=== PATIENT | male | born 1935 | race African-American/Black ===

== ENCOUNTER 2017-03-18 22:50 | Emergency (ER) | payer MEDICARE, OTHER ==
[~2017-03-18 22:50] MED LIST: ACET160S FT; AMLO5TAB4 PO; ASPI325T8 PO; CARV12.5 PO; CLON0.1T PO; DONE5TAB56 PO; INSU100I17 SQ; INSU100V13 SQ; INSU100V31 SQ; IPRA3AMP IH; LANS30CA66 PO; NITR0.4T SL; NITR0.4T22 SL; SIMV20TA3 PO; duoneb
--- NOTE | 2017-03-19 00:03 | PHYS DOC ---
Past Medical History Past Medical History: Anemia, Asthma, CHF, Constipation, COPD, CVA, Dementia, Depression, Diabetes-Type II, GERD, High Cholesterol, Hypertension, Seizure, Other Additional Past Medical Histor: Peripheral vascular disease, DYSPHAGIA, Insomnia, Edema, Hemiplegia Past Surgical History: Other Additional Past Surgical Histo: G-tube, L AKA ,noted surgical scar to R)lower leg Alcohol Use: None Drug Use: None Adult General Chief Complaint Chief Complaint: GTUBE REPLACEMENT/MALFUNCTION HPI HPI Patient is a 81 year old gentleman who [facility] from the [facility] secondary to malfunctioning G-tube. Per the nursing report the G-tube is leaking went to feeds are being injected. Patient is unable to give any further history. History and physical exam is limited unobtainable secondary to the patient's inability to communicate and follow instructions. Review of systems Unobtainable secondary to the patient's inability to answer/dementia Physical exam Constitutional:, non-toxic appearance. HENT: Normocephalic, atraumatic, bilateral external ears normal, oropharynx moist, no oral exudates, nose normal. Eyes: conjunctiva normal, no discharge. Neck: supple, no stridor. Cardiovascular:Heart rate regular rhythm, Lungs & Thorax: Bilateral breath sounds clear to auscultation Abdomen: Bowel sounds normal, soft, no tenderness, no masses, no pulsatile masses. G-tube intact. Skin: Warm, dry, Back: No tenderness, Extremities: No tenderness, no cyanosis, Neurologic: Responsive physical stimuli Unable to assess full physical exam secondary to the patient's dementia. Assessment and plan This is a 81-year-old gentleman who presents here today for G-tube malfunction. A 20 Indonesian G-tube was reinserted into the patient's tract without difficulty. G -tube site was obtained which revealed adequate placement of the G-tube. Patient be [facility] back to the [facility] for continued to feedings. Procedure: 22 Indonesian G-tube reinserted into G-tube tract without any difficulty. Review of Systems Review of Systems Allergies Allergies Allergies Coded Allergies Type Severity Reaction Last Updated Verified iodine Allergy Severe 11/01/14 Yes LETITIA Inhibitors Allergy Intermediate 11/01/14 Yes mupirocin Allergy Intermediate 11/01/14 Yes I S O L A T I O N *CONTACT* Allergy Unknown 11/01/14 Yes Current Patient Data Vital Signs Vital Signs Date Time Temp Pulse Resp B/P (MAP) Pulse Ox O2 Delivery O2 Flow Rate FiO2 03/18/17 22:59 97.8 85 16 166/73 (104) 92 Nasal Cannula 3.0 97.8 EKG EKG [] Radiology/Procedures Radiology/Procedures [] Course & Med Decision Making Course & Med Decision Making Pertinent Labs and Imaging studies reviewed. (See chart for details) [] Dragon Disclaimer Dragon Disclaimer This electronic medical record was generated, in whole or in part, using a voice recognition dictation system. Departure Departure Impression: Primary Impression: Encounter for gastrojejunal (GJ) tube placement Disposition: HOME, SELF-CARE Condition: IMPROVED Referrals: AMARIS MA MD (PCP) Patient Instructions: Gastrostomy Tube, Adult MANDA ALICEA MD Mar 19, 2017 00:03
[2017-03-19 00:41] VITALS: BP 175/79
[2017-03-19] MEDS ORDERED: CONTRAST GIVEN MC PRN (01:00)
[2017-03-19] MEDS ORDERED: IOHEXOL 300 MG/ML 75 ML VIAL PO ONE (01:30)
--- NOTE | 2017-03-19 08:05 | RAD ---
Supine abdomen. History: G-tube check Supine view was taken of the abdomen. Initial images showed a gastrostomy tube in place. There is mild distention of the colon without bowel obstruction. 2 additional films were taken following injection of Gastrografin. Contrast is in the stomach and in the small bowel. There is no free extravasation in the abdomen noted. There may be some contrast near the balloon or along the tract. Impression: 1. Gastrografin mainly in the stomach and bowel. 2. No free extravasation noted in the abdomen.
== END 2017-03-19 01:26 | disposition home or self-care (01) ==
LOC: ER 22:50
DX: Z43.1 Encounter for attention to gastrostomy (principal); J44.9 Chronic obstructive pulmonary disease, unspecified; E11.9 Type 2 diabetes mellitus without complications; K21.9 Gastro-esophageal reflux disease without esophagitis; E78.5 Hyperlipidemia, unspecified; I11.0 Hypertensive heart disease with heart failure; I50.9 Heart failure, unspecified; G81.90 Hemiplegia, unspecified affecting unspecified side; Z88.8 Allergy status to other drugs, medicaments and biological substances
CPT/HCPCS: 43760; 74000; 99284; Q9967

== ENCOUNTER 2017-03-27 13:43 | Inpatient (IN) | payer MEDICARE, OTHER ==
[~2017-03-27] VITALS: Ht 188 cm; Wt 94.6 kg
[~2017-03-27 13:43] MED LIST changes: +AMLO5TAB4 GT; -AMLO5TAB4 PO; +CARV12.5 GT; -CARV12.5 PO
--- NOTE | 2017-03-27 14:00 | PHYS DOC ---
Past Medical History Past Medical History: Anemia, Asthma, CHF, Constipation, COPD, CVA, Dementia, Depression, Diabetes-Type II, GERD, High Cholesterol, Hypertension, Seizure, Other Additional Past Medical Histor: Peripheral vascular disease, DYSPHAGIA, Insomnia, Edema, Hemiplegia Past Surgical History: Other Additional Past Surgical Histo: G-tube, L AKA ,noted surgical scar to R)lower leg Alcohol Use: None Drug Use: None Adult General Chief Complaint Chief Complaint: GTUBE REPLACEMENT/MALFUNCTION HPI HPI Patient is a 81 year old male presenting to the emergency department for a nonfunctioning GJ tube. He was seen here approximately 10 days ago for a leaking J-tube however it was functioning and was sent home but today starting this morning the GJ tube will not flush. Review of Systems Review of Systems Constitutional: Denies fever or chills [] Eyes: Denies change in visual acuity, redness, or eye pain [] HENT: Denies nasal congestion or sore throat [] Respiratory: Denies cough or shortness of breath [] Cardiovascular: No additional information not addressed in HPI [] GI: Denies abdominal pain, nausea, vomiting, bloody stools or diarrhea [] : Denies dysuria or hematuria [] Musculoskeletal: Denies back pain or joint pain [] Integument: Denies rash or skin lesions [] Neurologic: Denies headache, focal weakness or sensory changes [] Current Medications Current Medications Current Medications Medications (Trade) Dose Ordered Sig/Pasquale Start Time Stop Time Status Last Admin Dose Admin Ondansetron HCl (Zofran) 4 mg PRN Q8HRS PRN 03/27/17 14:30 03/28/17 14:29 Allergies Allergies Allergies Coded Allergies Type Severity Reaction Last Updated Verified iodine Allergy Severe 11/01/14 Yes LETITIA Inhibitors Allergy Intermediate 11/01/14 Yes mupirocin Allergy Intermediate 11/01/14 Yes I S O L A T I O N *CONTACT* Allergy Unknown 11/01/14 Yes Physical Exam Physical Exam Constitutional: Well developed, well nourished, no acute distress, non-toxic appearance. [] HENT: Normocephalic, atraumatic, bilateral external ears normal, oropharynx moist, no oral exudates, nose normal. [] Eyes: PERRLA, EOMI, conjunctiva normal, no discharge. [] Neck: Normal range of motion, no tenderness, supple, no stridor. [] Cardiovascular:Heart rate regular rhythm, no murmur [] Lungs & Thorax: Bilateral breath sounds clear to auscultation [] Abdomen: Bowel sounds normal, soft, no tenderness. GJ tube in place but will not flush. Skin: Warm, dry, no erythema, no rash. [] Back: No tenderness, no CVA tenderness. [] Extremities: No tenderness, no cyanosis, no clubbing, ROM intact, no edema. [] Neurologic: Alert and oriented X 3 Current Patient Data Vital Signs Vital Signs Date Time Temp Pulse Resp B/P (MAP) Pulse Ox O2 Delivery O2 Flow Rate FiO2 03/27/17 13:54 98.4 72 20 158/71 (100) 98 Room Air 98.4 EKG EKG [] Radiology/Procedures Radiology/Procedures [] Course & Med Decision Making Course & Med Decision Making Bia of Dr. Worley GI service came down and they agreed to change it out tomorrow. I spoke to Dr. Martins and he states that he does not go to the intermediate anymore and requested the hospitalist to admit. Dragon Disclaimer Dragon Disclaimer This electronic medical record was generated, in whole or in part, using a voice recognition dictation system. Departure Departure Impression: Primary Impression: Malfunction of gastrostomy tube Disposition: ADMITTED INPATIENT Admitting Physician: Angie Lopes Condition: STABLE Referrals: AMARIS MARTINS MD (PCP) KARYN FIORE DO Mar 27, 2017 14:00
[2017-03-27] MEDS ORDERED: ONDANSETRON PF 4 MG/2 ML VIAL. IV PRN (14:30)
[2017-03-27 14:45] LABS: BASO % 0 % (0-3); EOS % 4 % (0-3); HEMATOCRIT 44.9 % (39.0-53.0); HEMOGLOBIN 15.5 g/dL (13.0-17.5); LYMPH # 1.5 x10^3/uL (1.0-4.8); LYMPH % 28 % (24-48); MEAN CORPUSCULAR HEMOGLOBIN 30 pg (25-35); MEAN CORPUSCULAR HGB CONC 35 g/dL (31-37); MEAN CORPUSCULAR VOLUME 87 fL (79-100); MONO % 18 % (0-9); NEUT % 50 % (31-73); PLATELET COUNT 124 x10^3/uL (140-400); RED BLOOD COUNT 5.15 x10^6/uL (4.30-5.70); RED CELL DISTRIBUTION WIDTH 16.2 % (11.5-14.5); WHITE BLOOD COUNT 5.6 x10^3/uL (4.0-11.0)
[2017-03-27] MEDS ORDERED: PIOG30TA41 GT (14:50)
[2017-03-27] MEDS ORDERED: ATOR10TA60 GT (14:51)
--- NOTE | 2017-03-27 14:51 | PDOC2 ---
GI CONSULT Reason For Consult: G tube malfunction HPI: HPI: 81 y/o male from [facility] [place], brought to ER w/ reports of G tube malfunctioning since this morning. D/w Dr. Winchester, ER physician. H/o CVA and dysphagia. Per [facility] records, had EGD w/ replacement of PEG (#20 F pull type tube ) by Dr. Rehman in 10/2016. Since then apparently had a GJ tube placed elsewhere (?here in ER on 03/18 - KUB w/ GG below, ER notes: "22 Khmer G-tube reinserted into G-tube tract without any difficulty"). Regardless, it is now apparently malfunctioning, unable to use for feeds at living facility and unable to flush in ER. Home meds include omeprazole and ASA. PMH: PMH: from chart - CAD, CVA, COPD, DM, HTN, HLD, PAD, dysphagia, PEG tube placement, left AKA, right toe amputations FH: Family History: No pertinent hx Social History: Smoke: No ALCOHOL: none Drugs: None ROS: Difficult to obtain. Vitals: Vitals: Vital Signs Date Time Temp Pulse Resp B/P (MAP) Pulse Ox O2 Delivery O2 Flow Rate FiO2 03/27/17 13:54 98.4 72 20 158/71 (100) 98 Room Air 98.4 Labs: Labs: Laboratory Tests Test 03/27/17 14:35 White Blood Count 5.6 x10^3/uL (4.0-11.0) Red Blood Count 5.15 x10^6/uL (4.30-5.70) Hemoglobin 15.5 g/dL (13.0-17.5) Hematocrit 44.9 % (39.0-53.0) Mean Corpuscular Volume 87 fL (79-100) Mean Corpuscular Hemoglobin 30 pg (25-35) Mean Corpuscular Hemoglobin Concent 35 g/dL (31-37) Red Cell Distribution Width 16.2 % (11.5-14.5) Platelet Count 124 x10^3/uL (140-400) Neutrophils (%) (Auto) 50 % (31-73) Lymphocytes (%) (Auto) 28 % (24-48) Monocytes (%) (Auto) 18 % (0-9) Eosinophils (%) (Auto) 4 % (0-3) Basophils (%) (Auto) 0 % (0-3) Neutrophils # (Auto) 2.8 x10^3uL (1.8-7.7) Lymphocytes # (Auto) 1.5 x10^3/uL (1.0-4.8) Monocytes # (Auto) 1.0 x10^3/uL (0.0-1.1) Eosinophils # (Auto) 0.2 x10^3/uL (0.0-0.7) Basophils # (Auto) 0.0 x10^3/uL (0.0-0.2) Allergies: Coded Allergies: iodine (Verified Allergy, Severe, 11/01/14) LETITIA Inhibitors (Verified Allergy, Intermediate, 11/01/14) mupirocin (Verified Allergy, Intermediate, 11/01/14) I S O L A T I O N *CONTACT* (Verified Allergy, Unknown, 11/01/14) mrsa + Medications: Please see EMR. Imaging: Imaging: KUB 03/18/17 Impression: 1. Gastrografin mainly in the stomach and bowel. 2. No free extravasation noted in the abdomen. PE: GEN: NAD HEENT: Atraumatic, PERRL LUNGS: decreased HEART: RRR ABD: BS+, non-tender, PEG site w/ minimal drainage (gauze/tape replaced), bumper loose, PEG tube w/ three ports EXTREMITY: left AKA, right toe amputations, right foot in cloth boot SKIN: No rashes, no jaundice NEURO/PSYCH: A & O 3, nods and shakes head, doesn't speak to me A/P: A/P: Feeding tube malfunction -h/o CVA, dysphagia, PEG placement ([facility] records show regular G tube placed w/ Dr. Rehman in 10/2016) -currently has GJ tube, non-functioning since this morning -- To be admitted. Plan for EGD w/ PEG replacement tomorrow afternoon w/ Dr. Worley. PANCHO LOU Mar 27, 2017 14:51
[2017-03-27] MEDS ORDERED: ALOE237J TP (14:53)
[2017-03-27 14:54] LABS: PROTHROMBIN TIME PATIENT 12.9 SEC (11.7-14.0)
[2017-03-27] MEDS ORDERED: GABA-586 GT (14:56)
[2017-03-27] MEDS ORDERED: HYDR25TA9 GT (14:56)
[2017-03-27] MEDS ORDERED: NITR1PAT5 TD (14:58)
[2017-03-27] MEDS ORDERED: OMEP20CA9 GT (14:58)
[2017-03-27] MEDS ORDERED: BUDE10.2 IH (14:59)
[2017-03-27] MEDS ORDERED: TRAZ50TA15 PO (14:59)
[2017-03-27] MEDS ORDERED: MONT10TA9 PO (14:59)
[2017-03-27 15:00] VITALS: BP 129/70
[2017-03-27 15:02] LABS: CALCIUM 9.9 mg/dL (8.5-10.1); CREATININE 1.1 mg/dL (0.7-1.3); GFR 77.7; POTASSIUM 3.7 mmol/L (3.5-5.1)
[2017-03-27 15:08] LABS: ALBUMIN 2.9 g/dL (3.4-5.0); ALBUMIN/GLOBULIN RATIO 0.6 (1.0-1.7); TOTAL BILIRUBIN 0.7 mg/dL (0.2-1.0); TOTAL PROTEIN 7.7 g/dL (6.4-8.2)
--- NOTE | 2017-03-27 18:26 | PDOC1 ---
History and Physical Date of Admission Date of Admission DATE: 03/27/17 TIME: 18:22 Source Source: Chart review, Patient History of Present Illness History of Present Illness 81 y/o male from [facility] [place], admit from ER for malfunction feeding tube. < 12 horus of malfunction tongith Pt some aphasic, can talk some, mostly nods H/o CVA and dysphagia. had EGD previously now has GJ tube placed elsewhere. cannot flush, not getting meals or meds Past Medical History Past Medical History CAD, CVA, COPD, DM, HTN, HLD, PAD, dysphagia, PEG tube placement, left AKA, right toe amputations Family History Family History: No Significant Social History Smoke: No ALCOHOL: none Drugs: None Current Problem List Problem List Problems Medical Problems: (1) Malfunction of gastrostomy tube Status: Acute Problems: Current Medications Current Medications Current Medications Ondansetron HCl (Zofran) 4 mg PRN Q8HRS PRN IV NAUSEA/VOMITING; Start 03/27/17 at 14:30; Stop 03/28/17 at 14:29 Cefazolin Sodium 1 gm/Sodium Chloride 50 ml @ 100 mls/hr 1X ONCE IV ; Start 03/28/17 at 15:00; Stop 03/28/17 at 15:29 Famotidine (Pepcid) 20 mg BID IVP ; Start 03/27/17 at 21:00 Active Scripts Active Reported Trazodone Hcl 50 Mg Tablet 1 Tab PO QHS Symbicort 160-4.5 Mcg Inhaler (Budesonide/Formoterol Fumarate) 10.2 Gm Hfa.aer.ad 2 Puff IH BID Montelukast Sodium Tablet (Montelukast Sodium) 10 Mg Tablet 1 Tab PO DAILY Omeprazole 20 Mg Capsule.dr 1 Cap PO DAILY NITRO-DUR 0.2mg/hr (Nitroglycerin) 1 Each Patch.td24 1 Each TD DAILY Hydrochlorothiazide Tablet (Hydrochlorothiazide) 25 Mg Tablet 1 Tab PO DAILY Gabapentin 300 Mg Capsule 300 Mg PO TID Aloe Vera 237 Ml Gel..ml. 237 Ml TP BID APPLY TO RIGHT ELBOW Atorvastatin Calcium 10 Mg Tablet 1 Tab PO DAILY IN THE EVENING Actos (Pioglitazone Hcl) 30 Mg Tablet 1 Tab PO DAILY Novolog Flexpen (Insulin Aspart) 100 Unit/1 Ml Insuln.pen Unit SQ Q6HRS 200-299=2 units 300-399=4 units 400-499=6 units if less than 70 or greater than 499 call doctor please NITROGLYCERIN SubLingual (Nitroglycerin) 0.4 Mg Tab.subl 0.4 Mg SL PRN Q5MIN PRN Levemir (Insulin Detemir) 100 Unit/1 Ml Vial 16 Unit SQ QHS Duoneb 0.5-3(2.5) Mg/3 Ml (Albuterol/Ipratropium) 3 Ml Ampul.neb 3 Ml IH Q4HRS PRN Acetaminophen 160 Mg/5 Ml Solution 20 Ml FT Q4HRS PRN Novolog (Insulin Aspart) 100 Unit/1 Ml Vial 8 Unit SQ Q6HRS Norvasc (Amlodipine Besylate) 5 Mg Tablet 1 Tab PO DAILY Aspirin 325 Mg Tablet 325 Mg PO DAILY Coreg (Carvedilol) 12.5 Mg Tablet 12.5 Mg PO BIDWMEALS Allergies Allergies: Coded Allergies: iodine (Verified Allergy, Severe, 11/01/14) LETITIA Inhibitors (Verified Allergy, Intermediate, 11/01/14) mupirocin (Verified Allergy, Intermediate, 11/01/14) I S O L A T I O N *CONTACT* (Verified Allergy, Unknown, 11/01/14) mrsa + ROS Review of System unable to complete Physical Exam General: Alert, Cooperative, No acute distress HEENT: EOMI Lungs: Normal air movement Heart: no gallops, no murmurs Extremities: No edema Skin: No breakdown, No significant lesion Psych/Mental Status: Mental status NL, Mood NL Vitals Vitals Vital Signs Date Time Temp Pulse Resp B/P (MAP) Pulse Ox O2 Delivery O2 Flow Rate FiO2 03/27/17 15:00 98.1 78 14 129/70 (89) 94 Nasal Cannula 3.0 98.1 Labs Labs Laboratory Tests Test 03/27/17 14:35 03/27/17 15:55 White Blood Count 5.6 x10^3/uL (4.0-11.0) Red Blood Count 5.15 x10^6/uL (4.30-5.70) Hemoglobin 15.5 g/dL (13.0-17.5) Hematocrit 44.9 % (39.0-53.0) Mean Corpuscular Volume 87 fL (79-100) Mean Corpuscular Hemoglobin 30 pg (25-35) Mean Corpuscular Hemoglobin Concent 35 g/dL (31-37) Red Cell Distribution Width 16.2 % (11.5-14.5) Platelet Count 124 x10^3/uL (140-400) Neutrophils (%) (Auto) 50 % (31-73) Lymphocytes (%) (Auto) 28 % (24-48) Monocytes (%) (Auto) 18 % (0-9) Eosinophils (%) (Auto) 4 % (0-3) Basophils (%) (Auto) 0 % (0-3) Neutrophils # (Auto) 2.8 x10^3uL (1.8-7.7) Lymphocytes # (Auto) 1.5 x10^3/uL (1.0-4.8) Monocytes # (Auto) 1.0 x10^3/uL (0.0-1.1) Eosinophils # (Auto) 0.2 x10^3/uL (0.0-0.7) Basophils # (Auto) 0.0 x10^3/uL (0.0-0.2) Prothrombin Time 12.9 SEC (11.7-14.0) Prothromb Time International Ratio 1.0 (0.8-1.1) Activated Partial Thromboplast Time 29 SEC (24-38) Sodium Level 140 mmol/L (136-145) Potassium Level 3.7 mmol/L (3.5-5.1) Chloride Level 102 mmol/L (98-107) Carbon Dioxide Level 41 mmol/L (21-32) Anion Gap -3 (6-14) Blood Urea Nitrogen 29 mg/dL (8-26) Creatinine 1.1 mg/dL (0.7-1.3) Estimated GFR (Cockcroft-Gault) 77.7 BUN/Creatinine Ratio 26 (6-20) Glucose Level 88 mg/dL (70-99) Calcium Level 9.9 mg/dL (8.5-10.1) Total Bilirubin 0.7 mg/dL (0.2-1.0) Aspartate Amino Transf (AST/SGOT) 23 U/L (15-37) Alanine Aminotransferase (ALT/SGPT) 26 U/L (16-63) Alkaline Phosphatase 77 U/L (46-116) Total Protein 7.7 g/dL (6.4-8.2) Albumin 2.9 g/dL (3.4-5.0) Albumin/Globulin Ratio 0.6 (1.0-1.7) Glucose (Fingerstick) 82 mg/dL (70-99) Laboratory Tests Test 03/27/17 14:35 03/27/17 15:55 White Blood Count 5.6 x10^3/uL (4.0-11.0) Red Blood Count 5.15 x10^6/uL (4.30-5.70) Hemoglobin 15.5 g/dL (13.0-17.5) Hematocrit 44.9 % (39.0-53.0) Mean Corpuscular Volume 87 fL (79-100) Mean Corpuscular Hemoglobin 30 pg (25-35) Mean Corpuscular Hemoglobin Concent 35 g/dL (31-37) Red Cell Distribution Width 16.2 % (11.5-14.5) Platelet Count 124 x10^3/uL (140-400) Neutrophils (%) (Auto) 50 % (31-73) Lymphocytes (%) (Auto) 28 % (24-48) Monocytes (%) (Auto) 18 % (0-9) Eosinophils (%) (Auto) 4 % (0-3) Basophils (%) (Auto) 0 % (0-3) Neutrophils # (Auto) 2.8 x10^3uL (1.8-7.7) Lymphocytes # (Auto) 1.5 x10^3/uL (1.0-4.8) Monocytes # (Auto) 1.0 x10^3/uL (0.0-1.1) Eosinophils # (Auto) 0.2 x10^3/uL (0.0-0.7) Basophils # (Auto) 0.0 x10^3/uL (0.0-0.2) Prothrombin Time 12.9 SEC (11.7-14.0) Prothromb Time International Ratio 1.0 (0.8-1.1) Activated Partial Thromboplast Time 29 SEC (24-38) Sodium Level 140 mmol/L (136-145) Potassium Level 3.7 mmol/L (3.5-5.1) Chloride Level 102 mmol/L (98-107) Carbon Dioxide Level 41 mmol/L (21-32) Anion Gap -3 (6-14) Blood Urea Nitrogen 29 mg/dL (8-26) Creatinine 1.1 mg/dL (0.7-1.3) Estimated GFR (Cockcroft-Gault) 77.7 BUN/Creatinine Ratio 26 (6-20) Glucose Level 88 mg/dL (70-99) Calcium Level 9.9 mg/dL (8.5-10.1) Total Bilirubin 0.7 mg/dL (0.2-1.0) Aspartate Amino Transf (AST/SGOT) 23 U/L (15-37) Alanine Aminotransferase (ALT/SGPT) 26 U/L (16-63) Alkaline Phosphatase 77 U/L (46-116) Total Protein 7.7 g/dL (6.4-8.2) Albumin 2.9 g/dL (3.4-5.0) Albumin/Globulin Ratio 0.6 (1.0-1.7) Glucose (Fingerstick) 82 mg/dL (70-99) VTE Prophylaxis Ordered VTE Prophylaxis Devices: No VTE Pharmacological Prophylaxi: No Assessment/Plan Assessment/Plan Dysfunction of feeding tube, change meds to IV as avail GI consulted, plan to repair or replaced GJ tube Hx CVA, Dm2, GERD, cont home meds admitted CATIE LARSEN MD Mar 27, 2017 18:26
[2017-03-27] MEDS ORDERED: ALBUTEROL SULFATE 2.5 MG/3 ML NEBU. NEB PRN (18:30)
[2017-03-27] MEDS ORDERED: DEXTROSE 50% 25 GM / 50ML DISP.SYRIN. IV PRN (18:30)
[2017-03-27] MEDS ORDERED: NITROGLYCERIN SUBLINGUAL 0.4 MG BOTTLE OF 25. SL PRN (18:30)
[2017-03-27] MEDS ORDERED: IPRATRPIUM/ALBUTEROL 0.5/2.5MG 3 ML NEBU. NEB ONE (18:30)
[2017-03-27 19:00] VITALS: BP 144/79
[2017-03-27] MEDS: IPRATRPIUM/ALBUTEROL 0.5/2.5MG 3 ML NEBU. NEB SCH (19:34)
[2017-03-27] MEDS: BUDESONIDE 0.5 MG/2 ML NEBU. NEB SCH (19:34)
[2017-03-27] MEDS: INSULIN DETEMIR 300 UNITS/3 ML INSULN.PEN. SQ SCH (21:00)
[2017-03-27] MEDS: INSULIN ASPART 300 UNITS/3 ML INSULN.PEN SQ SCH (21:00)
[2017-03-27] MEDS: FAMOTIDINE 20 MG/2 ML VIAL IVP SCH (21:06)
[2017-03-27] MEDS: IV NORMAL SALINE 1000ML BAG 1,000 ML IV SCH (21:06)
[2017-03-27 23:00] VITALS: BP 117/65
[2017-03-27] MEDS ORDERED: MORPHINE SULFATE 4 MG/ML DISP.SYRIN. IV PRN (23:45)
[2017-03-28 03:00] VITALS: BP 146/81
[2017-03-28 07:00] VITALS: BP 162/89
[2017-03-28] MEDS: INSULIN ASPART 300 UNITS/3 ML INSULN.PEN SQ SCH ×4 (07:30→21:00)
[2017-03-28] MEDS: IPRATRPIUM/ALBUTEROL 0.5/2.5MG 3 ML NEBU. NEB SCH ×4 (08:01→20:09)
[2017-03-28] MEDS: BUDESONIDE 0.5 MG/2 ML NEBU. NEB SCH ×2 (08:01→20:09)
[2017-03-28] MEDS: ASPIRIN 325 MG TABLET PO SCH (08:20)
[2017-03-28] MEDS: FAMOTIDINE 20 MG/2 ML VIAL IVP SCH ×2 (09:21→22:16)
[2017-03-28] MEDS: NITROGLYCERIN 0.2MG/HR PATCH. TD SCH (09:21)
[2017-03-28] MEDS: IV NORMAL SALINE 1000ML BAG 1,000 ML IV SCH (09:28)
[2017-03-28 11:00] VITALS: BP 158/68
--- NOTE | 2017-03-28 14:14 | PDOC ---
PROGRESS NOTES Chief Complaint Chief Complaint Dysfunction of feeding tube, dysphagia, prior CVA GI plan to repair or replaced GJ tube Hx CVA, Dm2, GERD, cont home meds History of Present Illness History of Present Illness plan GI procedure today no change otherwise, stable Vitals Vitals Vital Signs Date Time Temp Pulse Resp B/P (MAP) Pulse Ox O2 Delivery O2 Flow Rate FiO2 03/28/17 11:44 95 Nasal Cannula 1.0 03/28/17 11:00 97.6 77 18 158/68 (98) 97.6 Physical Exam General: Alert, Cooperative, No acute distress Heart: Regular rate Lungs: Wheezing Extremities: No edema Skin: No breakdown, No significant lesion Labs LABS Laboratory Tests Test 03/27/17 14:35 03/27/17 15:55 03/27/17 21:05 03/28/17 07:30 White Blood Count 5.6 x10^3/uL (4.0-11.0) Red Blood Count 5.15 x10^6/uL (4.30-5.70) Hemoglobin 15.5 g/dL (13.0-17.5) Hematocrit 44.9 % (39.0-53.0) Mean Corpuscular Volume 87 fL (79-100) Mean Corpuscular Hemoglobin 30 pg (25-35) Mean Corpuscular Hemoglobin Concent 35 g/dL (31-37) Red Cell Distribution Width 16.2 % (11.5-14.5) Platelet Count 124 x10^3/uL (140-400) Neutrophils (%) (Auto) 50 % (31-73) Lymphocytes (%) (Auto) 28 % (24-48) Monocytes (%) (Auto) 18 % (0-9) Eosinophils (%) (Auto) 4 % (0-3) Basophils (%) (Auto) 0 % (0-3) Neutrophils # (Auto) 2.8 x10^3uL (1.8-7.7) Lymphocytes # (Auto) 1.5 x10^3/uL (1.0-4.8) Monocytes # (Auto) 1.0 x10^3/uL (0.0-1.1) Eosinophils # (Auto) 0.2 x10^3/uL (0.0-0.7) Basophils # (Auto) 0.0 x10^3/uL (0.0-0.2) Prothrombin Time 12.9 SEC (11.7-14.0) Prothromb Time International Ratio 1.0 (0.8-1.1) Activated Partial Thromboplast Time 29 SEC (24-38) Sodium Level 140 mmol/L (136-145) Potassium Level 3.7 mmol/L (3.5-5.1) Chloride Level 102 mmol/L (98-107) Carbon Dioxide Level 41 mmol/L (21-32) Anion Gap -3 (6-14) Blood Urea Nitrogen 29 mg/dL (8-26) Creatinine 1.1 mg/dL (0.7-1.3) Estimated GFR (Cockcroft-Gault) 77.7 BUN/Creatinine Ratio 26 (6-20) Glucose Level 88 mg/dL (70-99) Calcium Level 9.9 mg/dL (8.5-10.1) Total Bilirubin 0.7 mg/dL (0.2-1.0) Aspartate Amino Transf (AST/SGOT) 23 U/L (15-37) Alanine Aminotransferase (ALT/SGPT) 26 U/L (16-63) Alkaline Phosphatase 77 U/L (46-116) Total Protein 7.7 g/dL (6.4-8.2) Albumin 2.9 g/dL (3.4-5.0) Albumin/Globulin Ratio 0.6 (1.0-1.7) Glucose (Fingerstick) 82 mg/dL (70-99) 74 mg/dL (70-99) 90 mg/dL (70-99) Review of Systems Review of Systems no n,vd' no new Assessment and Plan Assessmemt and Plan Problems Medical Problems: (1) Malfunction of gastrostomy tube Status: Acute Problems: Comment Review of Relevant I have reviewed the following items minerva (where applicable) has been applied. Labs Laboratory Tests Test 03/27/17 14:35 03/27/17 15:55 03/27/17 21:05 03/28/17 07:30 White Blood Count 5.6 x10^3/uL (4.0-11.0) Red Blood Count 5.15 x10^6/uL (4.30-5.70) Hemoglobin 15.5 g/dL (13.0-17.5) Hematocrit 44.9 % (39.0-53.0) Mean Corpuscular Volume 87 fL (79-100) Mean Corpuscular Hemoglobin 30 pg (25-35) Mean Corpuscular Hemoglobin Concent 35 g/dL (31-37) Red Cell Distribution Width 16.2 % (11.5-14.5) Platelet Count 124 x10^3/uL (140-400) Neutrophils (%) (Auto) 50 % (31-73) Lymphocytes (%) (Auto) 28 % (24-48) Monocytes (%) (Auto) 18 % (0-9) Eosinophils (%) (Auto) 4 % (0-3) Basophils (%) (Auto) 0 % (0-3) Neutrophils # (Auto) 2.8 x10^3uL (1.8-7.7) Lymphocytes # (Auto) 1.5 x10^3/uL (1.0-4.8) Monocytes # (Auto) 1.0 x10^3/uL (0.0-1.1) Eosinophils # (Auto) 0.2 x10^3/uL (0.0-0.7) Basophils # (Auto) 0.0 x10^3/uL (0.0-0.2) Prothrombin Time 12.9 SEC (11.7-14.0) Prothromb Time International Ratio 1.0 (0.8-1.1) Activated Partial Thromboplast Time 29 SEC (24-38) Sodium Level 140 mmol/L (136-145) Potassium Level 3.7 mmol/L (3.5-5.1) Chloride Level 102 mmol/L (98-107) Carbon Dioxide Level 41 mmol/L (21-32) Anion Gap -3 (6-14) Blood Urea Nitrogen 29 mg/dL (8-26) Creatinine 1.1 mg/dL (0.7-1.3) Estimated GFR (Cockcroft-Gault) 77.7 BUN/Creatinine Ratio 26 (6-20) Glucose Level 88 mg/dL (70-99) Calcium Level 9.9 mg/dL (8.5-10.1) Total Bilirubin 0.7 mg/dL (0.2-1.0) Aspartate Amino Transf (AST/SGOT) 23 U/L (15-37) Alanine Aminotransferase (ALT/SGPT) 26 U/L (16-63) Alkaline Phosphatase 77 U/L (46-116) Total Protein 7.7 g/dL (6.4-8.2) Albumin 2.9 g/dL (3.4-5.0) Albumin/Globulin Ratio 0.6 (1.0-1.7) Glucose (Fingerstick) 82 mg/dL (70-99) 74 mg/dL (70-99) 90 mg/dL (70-99) Laboratory Tests Test 03/27/17 14:35 03/27/17 15:55 03/27/17 21:05 03/28/17 07:30 White Blood Count 5.6 x10^3/uL (4.0-11.0) Red Blood Count 5.15 x10^6/uL (4.30-5.70) Hemoglobin 15.5 g/dL (13.0-17.5) Hematocrit 44.9 % (39.0-53.0) Mean Corpuscular Volume 87 fL (79-100) Mean Corpuscular Hemoglobin 30 pg (25-35) Mean Corpuscular Hemoglobin Concent 35 g/dL (31-37) Red Cell Distribution Width 16.2 % (11.5-14.5) Platelet Count 124 x10^3/uL (140-400) Neutrophils (%) (Auto) 50 % (31-73) Lymphocytes (%) (Auto) 28 % (24-48) Monocytes (%) (Auto) 18 % (0-9) Eosinophils (%) (Auto) 4 % (0-3) Basophils (%) (Auto) 0 % (0-3) Neutrophils # (Auto) 2.8 x10^3uL (1.8-7.7) Lymphocytes # (Auto) 1.5 x10^3/uL (1.0-4.8) Monocytes # (Auto) 1.0 x10^3/uL (0.0-1.1) Eosinophils # (Auto) 0.2 x10^3/uL (0.0-0.7) Basophils # (Auto) 0.0 x10^3/uL (0.0-0.2) Prothrombin Time 12.9 SEC (11.7-14.0) Prothromb Time International Ratio 1.0 (0.8-1.1) Activated Partial Thromboplast Time 29 SEC (24-38) Sodium Level 140 mmol/L (136-145) Potassium Level 3.7 mmol/L (3.5-5.1) Chloride Level 102 mmol/L (98-107) Carbon Dioxide Level 41 mmol/L (21-32) Anion Gap -3 (6-14) Blood Urea Nitrogen 29 mg/dL (8-26) Creatinine 1.1 mg/dL (0.7-1.3) Estimated GFR (Cockcroft-Gault) 77.7 BUN/Creatinine Ratio 26 (6-20) Glucose Level 88 mg/dL (70-99) Calcium Level 9.9 mg/dL (8.5-10.1) Total Bilirubin 0.7 mg/dL (0.2-1.0) Aspartate Amino Transf (AST/SGOT) 23 U/L (15-37) Alanine Aminotransferase (ALT/SGPT) 26 U/L (16-63) Alkaline Phosphatase 77 U/L (46-116) Total Protein 7.7 g/dL (6.4-8.2) Albumin 2.9 g/dL (3.4-5.0) Albumin/Globulin Ratio 0.6 (1.0-1.7) Glucose (Fingerstick) 82 mg/dL (70-99) 74 mg/dL (70-99) 90 mg/dL (70-99) Medications Current Medications Ondansetron HCl (Zofran) 4 mg PRN Q8HRS PRN IV NAUSEA/VOMITING; Start 03/27/17 at 14:30; Stop 03/28/17 at 14:29 Cefazolin Sodium 1 gm/Sodium Chloride 50 ml @ 100 mls/hr 1X ONCE IV ; Start 03/28/17 at 15:00; Stop 03/28/17 at 15:00; Status DC Famotidine (Pepcid) 20 mg BID IVP Last administered on 03/28/17 09:21; Start 03/27/17 at 21:00 Albuterol/ Ipratropium (Duoneb) 3 ml RTQID NEB Last administered on 03/28/17t 11:44; Start 03/27/17 at 20:00 Albuterol/ Ipratropium (Duoneb) 3 ml 1X ONCE NEB ; Start 03/27/17 at 18:30; Stop 03/27/17 at 18:31; Status DC Insulin Aspart (NovoLOG) 0-7 UNITS QIDACHS SQ ; Start 03/27/17 at 21:00 Dextrose (Dextrose 50%-Water Syringe) 12.5 gm PRN Q15MIN PRN IV SEE COMMENTS; Start 03/27/17 at 18:30 Aspirin (Yoel Aspirin) 325 mg DAILY PO ; Start 03/28/17 at 09:00 Albuterol Sulfate (Ventolin Neb Soln) 2.5 mg PRN Q4HRS PRN NEB SHORTNESS OF BREATH; Start 03/27/17 at 18:30 Nitroglycerin (Nitro-Dur) 1 patch DAILY TD Last administered on 03/28/17 09: 21; Start 03/28/17 at 09:00 Nitroglycerin (Nitrostat) 0.4 mg PRN Q5MIN PRN SL CHEST PAIN; Start 03/27/17 at 18:30 Budesonide (Pulmicort) 0.5 mg RTBID NEB Last administered on 03/28/17 08:01; Start 03/27/17 at 20:00 Insulin Detemir (Levemir) 9 units QHS SQ ; Start 03/27/17 at 21:00 Sodium Chloride 1,000 ml @ 80 mls/hr [id number] IV Last administered on 09:28; Start 03/27/17 at 18:30 Morphine Sulfate 4 mg PRN Q2HR PRN IV PAIN Last administered on 03/28/17 00: 07; Start 03/27/17 at 23:45 Active Scripts Active Reported Trazodone Hcl 50 Mg Tablet 1 Tab PO QHS Symbicort 160-4.5 Mcg Inhaler (Budesonide/Formoterol Fumarate) 10.2 Gm Hfa.aer.ad 2 Puff IH BID Montelukast Sodium Tablet (Montelukast Sodium) 10 Mg Tablet 1 Tab PO DAILY Omeprazole 20 Mg Capsule.dr 1 Cap PO DAILY NITRO-DUR 0.2mg/hr (Nitroglycerin) 1 Each Patch.td24 1 Each TD DAILY Hydrochlorothiazide Tablet (Hydrochlorothiazide) 25 Mg Tablet 1 Tab PO DAILY Gabapentin 300 Mg Capsule 300 Mg PO TID Aloe Vera 237 Ml Gel..ml. 237 Ml TP BID APPLY TO RIGHT ELBOW Atorvastatin Calcium 10 Mg Tablet 1 Tab PO DAILY IN THE EVENING Actos (Pioglitazone Hcl) 30 Mg Tablet 1 Tab PO DAILY Novolog Flexpen (Insulin Aspart) 100 Unit/1 Ml Insuln.pen Unit SQ Q6HRS 200-299=2 units 300-399=4 units 400-499=6 units if less than 70 or greater than 499 call doctor please NITROGLYCERIN SubLingual (Nitroglycerin) 0.4 Mg Tab.subl 0.4 Mg SL PRN Q5MIN PRN Levemir (Insulin Detemir) 100 Unit/1 Ml Vial 16 Unit SQ QHS Duoneb 0.5-3(2.5) Mg/3 Ml (Albuterol/Ipratropium) 3 Ml Ampul.neb 3 Ml IH Q4HRS PRN Acetaminophen 160 Mg/5 Ml Solution 20 Ml FT Q4HRS PRN Novolog (Insulin Aspart) 100 Unit/1 Ml Vial 8 Unit SQ Q6HRS Norvasc (Amlodipine Besylate) 5 Mg Tablet 1 Tab PO DAILY Aspirin 325 Mg Tablet 325 Mg PO DAILY Coreg (Carvedilol) 12.5 Mg Tablet 12.5 Mg PO BIDWMEALS Vitals/I & O Vital Sign - Last 24 Hours 03/27/17 03/27/17 03/27/17 03/27/17 15:00 16:00 19:00 19:36 Temp 98.1 97.7 98.1 97.7 Pulse 78 77 Resp 14 18 B/P (MAP) 129/70 (89) 144/79 (100) Pulse Ox 94 95 95 O2 Delivery Nasal Cannula Nasal Cannula Nasal Cannula Nasal Cannula O2 Flow Rate 3.0 3.0 3.0 1.0 03/27/17 03/27/17 03/28/17 03/28/17 20:00 23:00 00:07 00:37 Temp 97.7 97.7 Pulse 74 Resp 18 B/P (MAP) 117/65 (82) Pulse Ox 90 90 90 O2 Delivery Nasal Cannula Nasal Cannula Nasal Cannula Nasal Cannula O2 Flow Rate 1.0 3.0 3.0 3.0 03/28/17 03/28/17 03/28/17 03/28/17 03:00 07:00 08:01 11:00 Temp 97.7 97.8 97.6 97.7 97.8 97.6 Pulse 74 78 77 Resp 18 18 18 B/P (MAP) 146/81 (102) 162/89 (113) 158/68 (98) Pulse Ox 90 93 95 94 O2 Delivery Nasal Cannula Nasal Cannula Nasal Cannula Nasal Cannula O2 Flow Rate 3.0 3.0 1.0 3.0 03/28/17 11:44 Pulse Ox 95 O2 Delivery Nasal Cannula O2 Flow Rate 1.0 CATIE LARSEN MD Mar 28, 2017 14:14
[2017-03-28 15:00] VITALS: BP 150/68
[2017-03-28] MEDS: IV RINGERS,LACTATED 1000ML 1,000 ML IV SCH (16:19)
[2017-03-28] MEDS ORDERED: PROPOFOL 20 ML IV ONE (16:19)
[2017-03-28] MEDS ORDERED: ceFAZolin 1GM IVPB FOR OMNI 1 GM/50 ML BAG IV ONE (16:30)
--- NOTE | 2017-03-28 16:53 | PDOC4 ---
Operative Note Operative Note EGD with PEG replacement Meds propofol per anesthesia Pre-op dx oropharyngeal dysphagia/dysfunctional G tube post-op dx non-erosive gastritis S/p 20 FR Bard PEG original G tube placed Plan resume feedings and medications KAN Cameron MD Mar 28, 2017 16:53
[2017-03-28 19:00] VITALS: BP 177/88
[2017-03-28] MEDS: INSULIN DETEMIR 300 UNITS/3 ML INSULN.PEN. SQ SCH (21:00)
[2017-03-28 23:00] VITALS: BP 163/78
[2017-03-29] MEDS: IV NORMAL SALINE 1000ML BAG 1,000 ML IV SCH ×2 (01:35→15:31)
[2017-03-29 03:00] VITALS: BP 143/76
[2017-03-29] MEDS: IV RINGERS,LACTATED 1000ML 1,000 ML IV SCH (05:35)
[2017-03-29 07:00] VITALS: BP 175/83
[2017-03-29] MEDS: INSULIN ASPART 300 UNITS/3 ML INSULN.PEN SQ SCH ×2 (07:30→11:30)
[2017-03-29] MEDS: ASPIRIN 325 MG TABLET PO SCH (08:04)
[2017-03-29] MEDS: NITROGLYCERIN 0.2MG/HR PATCH. TD SCH (08:05)
[2017-03-29] MEDS: IPRATRPIUM/ALBUTEROL 0.5/2.5MG 3 ML NEBU. NEB SCH ×2 (08:34→11:26)
[2017-03-29] MEDS: BUDESONIDE 0.5 MG/2 ML NEBU. NEB SCH (08:34)
[2017-03-29] MEDS: FAMOTIDINE 20 MG/2 ML VIAL IVP SCH (10:26)
[2017-03-29 11:00] VITALS: BP 176/83
--- NOTE | 2017-03-29 11:16 | PDOC ---
Subjective: Subjective: Says hi, denies pain, indicates PEG working. Objective: Vital Signs: Vital Signs Date Time Temp Pulse Resp B/P (MAP) Pulse Ox O2 Delivery O2 Flow Rate FiO2 03/29/17 08:00 Nasal Cannula 2.0 03/29/17 07:00 98.4 85 18 175/83 (113) 98 98.4 Labs: Laboratory Tests Test 03/28/17 22:03 03/29/17 08:49 Glucose (Fingerstick) 85 mg/dL 131 mg/dL Imaging: EGD with PEG replacement 03/28/17 dx non-erosive gastritis S/p 20 FR Bard PEG original G tube placed PE: GEN: NAD LUNGS: clear HEART: RRR ABD: PEG site looks good, non-tender, removed gauze, tube feeds running, loosened a bit NEURO/PSYCH: A & O A/P: S/p PEG replacement -- PEG functioning. DC per primary. PANCHO LOU Mar 29, 2017 11:16
--- NOTE | 2017-03-31 14:41 | DS ---
DATE OF DISCHARGE: 03/29/2017 CHIEF COMPLAINT: PEG tube malfunction. HOSPITAL COURSE: The patient is an 81-year-old -[place] gentleman [facility] with chronic PEG tube feeding secondary to CVA with resultant dysphagia. His tube was found to be malfunctioning and he was referred to the Emergency Room for management. He was admitted. GI consult was obtained and the tube was exchanged on 03/29/2017. He was discharged shortly thereafter. PHYSICAL EXAMINATION: VITAL SIGNS: Show a blood pressure of 175/83, heart rate of 85, respiratory rate at 18. He is afebrile. GENERAL: This is an 81-year-old -[place] gentleman, alert and oriented, no acute distress, slight dysarthria. HEENT: Shows no scleral icterus. LUNGS: Clear. HEART: Regular rate and rhythm. ABDOMEN: Has positive bowel sounds, soft, nontender. EXTREMITIES: Show left BKA. DISCHARGE DATE: 03/29/2017 DISCHARGE DIAGNOSIS: Percutaneous endoscopic gastrostomy tube malfunction, status post percutaneous endoscopic gastrostomy tube exchange. DISCHARGE DISPOSITION: To SNF. DISCHARGE MEDICATIONS: Please refer to MAR. DISCHARGE INSTRUCTIONS: The patient will follow up with PCP in 1 week. Greater than 30 minute were spent in arranging discharge. JAVAN SORTO MD DR: [email or web address]/nts JOB#: [id number] / [id number] DONIS Landa
[2017-05-19] MEDS ORDERED: ASPI-630 GT (20:37)
[2017-05-19] MEDS ORDERED: ACID1TAB13 GT (20:37)
[2017-05-19] MEDS ORDERED: BUPR100T7 GT (20:48)
[2017-05-19] MEDS ORDERED: CHOL10003 GT (20:48)
[2017-05-19] MEDS ORDERED: POTA20LI27 PEG (20:48)
[2017-05-22] MEDS ORDERED: DOCU-109 PO (08:41)
[2017-05-25] MEDS ORDERED: BUDE0.5A NEB (08:42)
[2017-05-25] MEDS ORDERED: INSU100V13 SQ (08:43)
== END 2017-03-29 16:00 | DRG 393 ==
LOC: ER 13:43 → 5 NORTH 14:09
PROVIDERS: ADMIT Internal Medicine; ATTEND Internal Medicine
PROC: 0D20XUZ Change Feeding Device in Upper Intestinal Tract, External Approach (ICD-10-PCS; principal; 2017-03-28 17:00)
DX: K94.23 Gastrostomy malfunction (principal); J96.01 Acute respiratory failure with hypoxia; I69.359 Hemiplegia and hemiparesis following cerebral infarction affecting unspecified side; E11.51 Type 2 diabetes mellitus with diabetic peripheral angiopathy without gangrene; I50.9 Heart failure, unspecified; I11.0 Hypertensive heart disease with heart failure; F03.90 Unspecified dementia, unspecified severity, without behavioral disturbance, psychotic disturbance, mood disturbance, and anxiety; K29.70 Gastritis, unspecified, without bleeding; E78.00 Pure hypercholesterolemia, unspecified; E78.5 Hyperlipidemia, unspecified; I25.10 Atherosclerotic heart disease of native coronary artery without angina pectoris; J44.9 Chronic obstructive pulmonary disease, unspecified; K21.9 Gastro-esophageal reflux disease without esophagitis; F32.9 Major depressive disorder, single episode, unspecified; Y83.3 Surgical operation with formation of external stoma as the cause of abnormal reaction of the patient, or of later complication, without mention of misadventure at the time of the procedure; Z89.612 Acquired absence of left leg above knee; Z89.421 Acquired absence of other right toe(s); Z88.8 Allergy status to other drugs, medicaments and biological substances; Z88.1 Allergy status to other antibiotic agents; Z91.041 Radiographic dye allergy status
CPT/HCPCS: 36415; 80053; 82962; 85025; 85610; 85730; 94640; 94760; J0690; J1815; J2270; J2704; J7030; J7120; J7620; J7626; S0028; 99285-25